=== PATIENT | female | born 1955 | race American Indian/Alaskan Native ===

== ENCOUNTER 2017-02-02 12:33 | Emergency (ER) | payer BC ==
[~2017-02-02] VITALS: Ht 167.6 cm; Wt 119.1 kg
[2017-02-02] MEDS ORDERED: TOPAMAX50 MG PO (12:43)
[2017-02-02] MEDS ORDERED: IRON325 MG PO (12:44)
[2017-02-02 13:53] LABS: EOSINOPHIL (%) 1.1 % (0-5); EOSINOPHIL COUNT 0.1 K/uL (0-0.3); HEMATOCRIT 42.6 % (36.0-46.0); IMMATURE GRANULOCYTE (%) 0.5 % (0.0-0.7); INSTRUMENT ABS NEUTROPHIL CT 5.4 K/uL; LYMPHOCYTE COUNT 1.4 K/uL (1.0-2.8); MCH 23.7 PG (29.0-34.0); MCV 76.3 FL (83-99); MEAN PLAT.VOLUME 9.3 uM^3 (9.5-12.4); MONOCYTE (%) 7.1 % (3-12); MONOCYTE COUNT 0.5 K/uL (0-0.8); NEUTROPHIL (%) 71.9 % (45-76); NEUTROPHIL COUNT 5.4 K/uL (1.8-6.4); PLATELET COUNT 258 K/uL (156-360); RBC DIS.WIDTH-CV 15.8 % (11.8-14.6); RBC DIS.WIDTH-SD 42.8 % (39-53); RED BLOOD COUNT 5.58 M/uL (3.80-5.20); WHITE BLOOD COUNT 7.4 K/uL (4.1-10.2)
[2017-02-02 14:01] LABS: CHLORIDE 108 mEq/L (99-109); POTASSIUM 3.5 mEq/L (3.7-5.4); SODIUM 141 mEq/L (136-147)
[2017-02-02 14:03] LABS: GLUCOSE 101 mg/dL (70-99)
[2017-02-02 14:04] LABS: ANION GAP 12 MEQ/L (2-14)
[2017-02-02 14:07] LABS: GFR ESTIMATE (CALCULATED) > 59 mL/min/
[2017-02-02 14:08] LABS: UREA NITROGEN (BUN) 14 mg/dL (9-23)
[2017-02-02 14:34] LABS: TROP-I INTERPRETATION NEGATIVE; TROPONIN-I 0.02 ng/mL (0.0-0.30)
[2017-02-02] MEDS ORDERED: ANTIVERT25 MG PO (15:01)
[2017-02-02] MEDS ORDERED: NORVASC5 MG PO (15:02)
[2017-02-02 15:22] VITALS: BP 165/75
== END 2017-02-02 15:25 | disposition home or self-care (01) ==
LOC: EME 12:33
PROVIDERS: Emergency Medicine
DX: R42 Dizziness and giddiness (principal); R51 Headache; K21.9 Gastro-esophageal reflux disease without esophagitis; Z87.442 Personal history of urinary calculi
CPT/HCPCS: 70450; 80048; 84484; 85025; 93005; 99281; 99285; J2270; J2405; J7030